=== PATIENT | male | born 1975 | race Caucasian/White ===

== ENCOUNTER → 2018-06-01 | Outpatient (CLI) | payer MEDICARE, MEDICAID ==
[~2018-06-01] VITALS: Ht 167.6 cm; Wt 94.3 kg
== END | disposition home or self-care (01) ==
LOC: NM 08:00
PROVIDERS: ATTEND Internal Medicine Nephrology
DX: K30 Functional dyspepsia (principal)
CPT/HCPCS: 78265; A9541